=== PATIENT | female | born 1995 | race Caucasian/White ===

== ENCOUNTER 2017-06-24 20:04 | Emergency (ER) | payer MEDICAID ==
[~2017-06-24] VITALS: Ht 157.5 cm; Wt 67.1 kg
[2017-06-24 20:27] VITALS: BP 110/77
== END 2017-06-24 21:32 | disposition home or self-care (01) ==
LOC: ER 20:04
DX: T20.10XA Burn of first degree of head, face, and neck, unspecified site, initial encounter (principal); X08.8XXA Exposure to other specified smoke, fire and flames, initial encounter; Y93.89 Activity, other specified; Y92.89 Other specified places as the place of occurrence of the external cause; Y99.8 Other external cause status